=== PATIENT | female | born 1980 | race Caucasian/White ===

== ENCOUNTER 2016-07-23 23:50 | Inpatient (IN) | payer OTHER ==
--- NOTE | ~2016-07-23 | IDS ---
Interim Discharge Summary [facility] [address] [place]. [address] NAME: GONZÁLEZ MAX : 76 STATUS : ADM IN [facility]#: [id number] AGE: 36 ADM/REG DATE : 07/24/16 MR#: [id number] REPORT SERV DATE: 07/30/16 DICTATED BY: DATE: REPORT STATUS : Draft TRANSCRIBED BY: MODL DATE: 07/30/16 ADMISSION DATE: 07/24/2016 DISCHARGE DATE: The patient is admitted to the [facility]. CONSULTANTS: Have included Pulmonology, Dr. Karissa Omalley and CHRISTIAN Loev. CURRENT DIAGNOSES: 1. Acute hypoxemic respiratory failure-improving. 2. Acute exacerbation of chronic obstructive pulmonary disease-status post IV Rocephin and azithromycin. On ongoing IV steroid taper and frequent nebulizers. 3. Possible inflammatory lung disease-history of autoimmune conditions with abnormal CT chest for outpatient followup and repeat imaging in one to three months. 4. Possible asthma. 5. Low IgA level. 6. Steroid induced hyperglycemia. 7. New diagnosis of diabetes mellitus type 2-hemoglobin A1c 6.9. 8. Indeterminate probability PE on V/Q scan-heparin drip discontinued today for low clinical suspicion of pulmonary embolism. 9. History of lupus. 10.History of Raynaud. 11.History of myocardial infarction. 12.History of prior cerebrovascular accident. 13.History of papillary thyroid cancer, status post complete thyroidectomy. 14.History of hypoparathyroidism and hypocalcemia. 15.Bipolar/schizoaffective disorder. 16.Chronic pain syndrome. 17.Seizure disorder. 18.Obstructive sleep apnea, intolerant of CPAP. 19.Multiple recent dental infections and extractions. 20.Polypharmacy. 21.Obesity. 22.Tobacco dependence. 23.Low IgG level. IMAGIN. Portable chest x-ray, 07/23/2016 shows perihilar upper lobe atelectasis. 2. V/Q scan, 07/24/2016 extensive airway disease with matched defects in the lingula and lateral left base. No radiographic abnormality in the lingula or left base. Extent of ventilation disease is estimated to involve at least 50% of lung parenchyma resulting in overall indeterminate probability for pulmonary embolism. 3. Bilateral lower extremity venous Dopplers, 07/24/2016, no evidence of DVT. 4. Portable chest x-ray, 07/24/2016 persistent bilateral perihilar atelectasis and developing small left pleural effusion. 5. Echocardiogram, 07/24/2016 left ventricular systolic function intact at 55%. Left Interim Discharge Summary [place] [address] [place]. [address] NAME: GONZÁLEZ MAX : 76 STATUS : ADM IN PAT#: [id number] AGE: 36 ADM/REG DATE : 07/24/16 MR#: [id number] REPORT SERV DATE: 07/30/16 DICTATED BY: DATE: REPORT STATUS : Draft TRANSCRIBED BY: MODL DATE: 07/30/16 ventricular diastolic function intact. Right ventricular systolic function intact. No significant valvular dysfunction. No change from 11/2014. 6. Portable chest x-ray, 07/25/2016 bilateral asymmetric perihilar subsegmental atelectasis. Interval development of minimal bandlike atelectasis in the left lung base. 7. Portable chest x-ray, 07/26/2016 diminished lung volumes with mild bibasilar and perihilar atelectasis. 8. Chest CT without contrast, 07/26/2016, nonspecific ground-glass opacities and associated interstitial thickening, bilateral upper lobe and perihilar areas. Differential considerations are broad and include pneumonia, edema, alveolar hemorrhage, hypersensitivity pneumonitis, nonspecific interstitial pneumonitis, alveolar proteinosis. Mild bilateral posterior basal subsegmental atelectasis. No pleural disease. 9. Portable chest x-ray, 07/27/2016 continued low lung volumes with bibasilar and left perihilar atelectasis. 10.Portable chest x-ray, 07/29/2016 minimal left basilar atelectasis and effusion. PERTINENT LABS: Multiple procalcitonin values negative. White blood cell count between 12 and 14 and a half this admission, on steroids. Hemoglobin values between 11 and 13. Platelets normal. Creatinine ranging from 0.9 to 1.2. Blood glucose values between 200 and 500. Liver enzymes normal. TSH 0.196, free T4 normal, CRP 36. C3 and C4 levels normal. ANDREY negative. Troponin times multiple negative. Urinalysis negative. Urine Legionella negative. Strep antigen negative. Blood gases demonstrating hypoxemia with PO2 levels around 60s on FiO2 of 45% to 100%. Hemoglobin A1c 6.9. IgG level 468. Immunoglobulin A level 120, M 74. Blood cultures x2 negative. Sputum cultures negative. BRIEF HISTORY: For full details, please see the previously dictated history of present illness by Dr. Long Alas. This is a 36-year-old white female, who presented to the emergency department with shortness of breath for several days preceding admission, presyncope, weakness. Of note, she had recent dental extractions and had been on ciprofloxacin, but her symptoms were progressive despite this. She was seen at an urgent care clinic for her symptoms and started on a different antibiotic as well as inhalers, but her symptoms were progressive. She also endorsed pain in the middle of her chest primarily with coughing. In the emergency department was found to be quite hypoxemic, requiring 10 L to 14 L of oxygen to maintain oxygen saturations greater than 90%. She was felt potentially to have a COPD exacerbation as she recently had been diagnosed with COPD in the outpatient setting by her lens blocker, Dr. Sang Boateng. She also had an intermediate risk V/Q scan and was started on empiric heparin. She has a long-standing history of lupus and this was felt to be a possible contributing to presentation as well. HOSPITAL COURSE: The patient initially was admitted to [address] [place] [address], but had increasing respiratory requirements throughout the first day of admission. Her nebulizer regimen was optimized, with up to q.2 hour nebulizer treatments. Pulmonary toilet measures were encouraged. Her steroids were increased and her antibiotic was changed from doxycycline to Rocephin and azithromycin. Immunoglobulin levels were checked and she was found to be mildly deficient of IgG. Interim Discharge Summary [address] [address] NAME: GONZÁLEZ MAX DONNY : 76 STATUS : ADM IN [facility]#: [id number] AGE: 36 ADM/REG DATE : 07/24/16 MR#: [id number] REPORT SERV DATE: 07/30/16 DICTATED BY: DATE: REPORT STATUS : Draft TRANSCRIBED BY: MODEliza DATE: 07/30/16 Unfortunately, despite those measures she continued to wheeze tightly into the morning of 07/25/2016, and was transferred to the [facility]. Urgent pulmonary consultation was obtained and they agreed with all of those measures. ABG at that time was normal on 10 L of high-flow oxygen by nasal cannula, but the patient subjectively continued to complain of increasing dyspnea and chest pain. Multiple troponins were negative and procalcitonin was negative. Chest x-ray was clear. The patient was continued on her IV steroids, nebulizers, pulmonary toilet measures, and heparin drip at that time. She remained in the IMCU through 07/29/2016, and transferred out to the floor the evening of 07/29/2016, when her oxygen requirements had decreased to 2 L to 3 L by nasal cannula with exertion, and she was maintaining room air oxygen saturations greater than 90% at rest. Though, she continues to wheeze and be slightly bronchospastic with exertion, Ms. Max has improved dramatically during the course of this hospitalization. Just in the past 24 hours, we have begun IV steroid taper. She continues on high doses of nebulizer treatments. Her antibiotics have also been discontinued within the past 24 hours after completing seven-day total course of Rocephin and azithromycin here in the hospital. The patient has demonstrated extreme hyperglycemia in response to IV steroids with sugars occasionally in the 500 range. She is also noncompliant with a diabetic diet because of her recent tooth extractions and difficulty finding food. She enjoys eating. Her blood sugars are better controlled, now the steroid taper has started. However, hemoglobin A1c is elevated at 6.9, and she will require some followup for new diagnosis of type 2 diabetes. The patient had an abnormal CT chest this admission, nonspecific ground-glass opacities in the upper lobes. The differential diagnosis is broad, but the patient probably needs to follow up with her outpatient lens blocker, Dr. Sang Boateng for consideration of a lung biopsy in the future in order to determine the exact etiology of her profound bronchospasm and hypoxemia this admission. There is still a suspicion that IgG deficiency or autoimmune process may be factoring, of course, the patient also has COPD and probable evidence of restrictive airways disease due to habitus. She denies a past history of asthma by pulmonary function testing, but certainly aspects of this hospitalization seemed to reflect an acute asthma exacerbation. The patient occasionally also has "spells" where she is momentarily less responsive for a few seconds. There was no witnessed seizure activity. No loss of bowel or bladder continence and no postictal state. The patient has a history of seizure disorder and should follow up with Dr. Rodney regarding her medication regimen post discharge. She also has a history of lupus with somewhat unclear details as her ANDREY is negative and complement levels were normal this admission. She is supposed to follow up with Dr. Sang Laura for this, but has been noncompliant over the past several months. There is some concern for polypharmacy in the patient's medication regimen, but she was not open to the idea of streamlining medications this admission, nor was her mother, because "it has taken so long to get her on the right medication regimen ". The patient had indeterminate probability of pulmonary embolism on her initial V/Q scan, and unfortunately cannot receive contrast dye to stated history of anaphylaxis. Today, her Interim Discharge Summary [facility] [address] [place]. [address] NAME: GONZÁLEZ MAX : 76 STATUS : ADM IN PAT#: [id number] AGE: 36 ADM/REG DATE : 07/24/16 MR#: [id number] REPORT SERV DATE: 07/30/16 DICTATED BY: DATE: REPORT STATUS : Draft TRANSCRIBED BY: MODL DATE: 07/30/16 heparin drip is going to be discontinued because clinically the suspicion for pulmonary embolism is low given her clinical course over the past week. DISPOSITION: Would continue steroid taper and increase the patient's mobility. Watch for hypoglycemia as steroids are tapered. Her insulin will need to be decreased over the next one to two days. Anticipate the patient may be able to discharged home in the next two to three days pending her clinical course. She will need multiple followup appointments. Current specialists include Dr. Sang Boateng, Dr. Ninfa Rodney, Dr. Sang Laura, Dr. Ornelas, and her primary care provider is Dr. Karen Walker. AKS/WINL Devin Galeano M.D. / [id number] CC: DEVIN GALEANO M.D. Michael T Czarnecki, M.D. Peter Sabatini, MD
--- NOTE | ~2016-07-23 | DS ---
Discharge Summary [facility] [address] [place]. [address] NAME: GONZÁLEZ MAX : 76 STATUS : ADM IN PAT#: [id number] AGE: 36 ADM/REG DATE : 07/24/16 MR#: [id number] REPORT SERV DATE: 08/02/16 DICTATED BY: YENY LYLE DATE: 08/02/16 REPORT STATUS : Draft TRANSCRIBED BY: MODL DATE: 08/02/16 ADMISSION DATE: 07/24/2016 DISCHARGE DATE: 08/02/2016 CONDITION ON DISCHARGE: Stable. DISPOSITION: Discharged to home. EQUIPMENTS ON DISCHARGE: Home oxygen at 2 L/minute which the patient needs, and also a walker with rolling wheels or rolling walker as the patient does have difficulty walking around because of dyspnea with minimal exertion. DIAGNOSES ON DISCHARGE: 1. Acute hypoxemic respiratory failure - has improved; however, the patient will need home oxygen at 2 L/minute per nasal cannula for a while as her ABG is consistent with a low pO2 even on the day of discharge, but overall clinically her condition is much better and much improved. 2. Acute exacerbation of chronic obstructive pulmonary disease - resolved. 3. 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 At this time, this is also stable as the patient is on high-dose prednisone. 4. Low IgA level. 5. Steroid induced hyperglycemia. 6. Diagnosis of steroid induced diabetes mellitus with an A1c of 6.9. 7. Diagnosis of lupus. 8. History of Raynaud's probably from lupus. 9. Hypertension. 10.Only per history, there is a history of myocardial infarction and a questionable prior cerebrovascular accident. 11.History of papillary thyroid cancer. 12.History of hypoparathyroidism and hypocalcemia. 13.Bipolar/schizoaffective disorder. 14.Chronic pain syndrome. 15.Seizure disorder. 16.Obstructive sleep apnea - intolerant of CPAP. 17.Obesity and low IgG level. BRIEF HOSPITAL COURSE: Please refer to the intermittent discharge summary dictated by Dr. Wyatt. I took over care of this patient on 07/31/2016, and I am discharging the patient on 08/02/2016. During the time that I took care of this patient, the patient improved tremendously once I started her on prednisone at 40 mg a day. Her wheezes disappeared on 08/01/2016 itself, and her breathing got lot better and her lungs are pretty much clear on the day of discharge. However, she is still hypoxic, and her ABG shows that her pO2 is still low, and hence, she is requiring home oxygen at this time. Hence, we will send her home on home oxygen, and also advised her to follow up with tool storage attendant within the next one to two weeks or as scheduled. The patient will also follow up with her PCP and pain specialist as scheduled before. Discharge Summary [place] [id number] [facility] [place] [address] NAME: GONZÁLEZ MAX : 76 STATUS : ADM IN PAT#: [id number] AGE: 36 ADM/REG DATE : 07/24/16 MR#: [id number] REPORT SERV DATE: 08/02/16 DICTATED BY: YENY LYLE DATE: 08/02/16 REPORT STATUS : Draft TRANSCRIBED BY: SHRUTI DATE: 08/02/16 Essentially, her home medications will be exactly the same except that she has received new prescriptions for Breo Ellipta from the tool storage attendant and also a new prescription for Spiriva HandiHaler from the tool storage attendant, and also tapering prednisone therapy per Pulmonology. Other than this all other medications that she takes at home will remain exactly the same. Regarding her labs, I do have the following most recent labs on the patient. On 08/01/2016, her CBC shows a WBC count of 12.7, hemoglobin of 11.2, hematocrit of 33.3, and platelet count of 174. Her electrolyte profile shows normal electrolytes, BUN and creatinine. Glucose has been up, but never exceeded 180. There may have been one time when postprandial glucose was 250, but most results have stayed between 130 and 150. The patient may have some steroid induced hyperglycemia, but at this time, since her A1c is still less than 7, I will let the PCP handle this when she goes as an outpatient as we are tapering her steroids anyways. ABGs on 08/02/2016 shows pH of 7.4, pCO2 of 38, pO2 of 34, bicarb of 24.9, O2 sats of 67.8 on 2 L of oxygen. Hence, the patient may even need a higher amount of oxygen than 2 L and I will look into this before discharge. Hence, the patient will be discharged home with home oxygen and also a rolling walker as clinically she feels much better and her lungs have cleared up. The patient will closely follow up with tool storage attendant at this time, and she also has a coal weigher that she follows up with. I have spent about 40 minutes in coordinating discharge care of this patient including [id number] encounter and summarizing this discharge. DICTATED BY: Tameka Sampson/SHRUTI Yeny Lyle M.D. / [id number] CC: Tameka Sampson M.D.
--- NOTE | ~2016-07-23 | CN ---
Consultation Report [facility] [address] [place]. [address] NAME: GONZÁLEZ MAX : 76 STATUS : ADM IN PAT#: [id number] AGE: 36 ADM/REG DATE : 07/24/16 MR#: [id number] REPORT SERV DATE: 07/25/16 DICTATED BY: KARISSA REYES DATE: 07/25/16 REPORT STATUS : Draft TRANSCRIBED BY: MODL DATE: 07/25/16 PULMONARY CONSULTATION DATE OF CONSULTATION: 07/25/2016 REASON FOR CONSULTATION: Hypoxia, persistent wheezing, and increasing dyspnea despite therapy. HISTORY OF PRESENT ILLNESS: Ms. Max is a 36-year-old white female, smoker, with possible asthma and COPD, systemic lupus erythematosus, Raynaud's, and possible obstructive sleep apnea, who was admitted yesterday complaining of two weeks of increasing shortness of breath, nonproductive cough, wheezing, and malaise. Pulmonary was consulted secondary to worsening hypoxia, persistent wheezing, worsening shortness of breath, and symptoms/physical findings consistent with bronchospasm despite aggressive treatment with antibiotics, IV steroids, bronchodilators, nebulized steroids, and supplemental oxygen. The patient is complaining of marked shortness of breath/dyspnea on exertion that has worse since admission yesterday. She states her nonproductive cough is unchanged. She does have chronic GERD symptoms, but feels these are well controlled with her proton pump inhibitor. She denies nasal symptoms, allergic symptoms, or orthopnea. She did have some sharp chest pain prior to admission, but states that has resolved. With regard to her underlying pulmonary disease, she is followed outpatient by lens coater, Dr. Sang Boateng. She states that Dr. Boateng has advised her that she has COPD, but "not asthma." She states she did have pulmonary function testing. Additionally, she states she had a CT scan of the chest more than one year ago, but has not had any recent outpatient chest x-rays. As an outpatient, she was on Singulair 10 mg once daily. She also had albuterol for rescue purposes, but was on no other maintenance medications. It is notable that she was on prednisone 20 mg twice daily for her rheumatological disorder. Since admission, she has received Solu-Medrol 125 mg IV q.6. She is on Rocephin and azithromycin. Additionally, she is receiving DuoNeb and supplemental oxygen with no improvement in her symptoms, but rather worsening as noted above. PAST MEDICAL HISTORY: 1. Possible COPD as noted above. 2. Obstructive sleep apnea-per the patient and her family on available information, the patient had an initial sleep study done several years ago outside of [place], at that time, she was diagnosed with obstructive sleep apnea and started on CPAP. She was intolerant of CPAP due to coughing. She had a subsequent sleep study done here 12/22/2014 that was negative for sleep apnea so CPAP was discontinued. 3. Systemic lupus erythematosus, diagnosed at 20 years of age-on chronic steroid therapy. 4. Raynaud disease, diagnosed at 11 years of age. 5. Coronary artery disease with previous myocardial infarction x3 and subsequent Consultation Report [address] [place]. [address] NAME: GONZÁLEZ MAX : 76 STATUS : ADM IN [facility]#: [id number] AGE: 36 ADM/REG DATE : 07/24/16 MR#: [id number] REPORT SERV DATE: 07/25/16 DICTATED BY: KARISSA REYES DATE: 07/25/16 REPORT STATUS : Draft TRANSCRIBED BY: SHRUTI DATE: 07/25/16 angioplasty. 6. Recurrent urinary tract infections. 7. Fatty liver. 8. Colon polyps. 9. Seizure disorder. 10.Thyroidectomy secondary to papillary carcinoma of the thyroid with subsequent hypothyroidism. 11.Anxiety/depression. 12.Schizoaffective disorder. 13.Hypoparathyroidism with associated hypocalcemia. 14.Nephrolithiasis with prior stenting. 15.Cholecystectomy. 16.Hysterectomy. FAMILY HISTORY: Maternal grandmother has immunodeficiency. Maternal aunts have lupus. She denies a family history of pulmonary diseases. SOCIAL HISTORY: The patient is an active smoker. She has smoked up to one pack of cigarettes per day intermittently since age 18. She currently smokes four cigarettes per day. She denies ethanol intake, past/present drug use, chewing tobacco, or occupational exposures. She is unemployed-on disability. She is . She has two children from a prior marriage who live in another state. MEDICATIONS: Outpatient and inpatient medications were reviewed and are as documented in the record. As noted above, her outpatient pulmonary medications were nebulized albuterol/metered dose inhaler as needed and Singulair 10 mg once daily. ALLERGIES: CONTRAST DYE, PROCAINE, REGLAN, CODEINE, SULFA, AND HYDROCODONE. REVIEW OF SYSTEMS: Ten-point system review was conducted and is remarkable for the symptoms as described in the history of present illness. She denies active symptoms of obstructive sleep apnea. PHYSICAL EXAMINATION: VITAL SIGNS: Temperature 97.6 degrees, heart rate 92, blood pressure 90/55, respiratory rate 16, oxygen saturation 92% on supplemental oxygen at a flow rate of 10 L/minute. GENERAL: Pale obese white female. Alert, oriented, in no apparent distress. Slightly diaphoretic. HEENT: Normocephalic and atraumatic. There is no scleral icterus. The conjunctivae are clear. The oropharynx is clear. NECK: Supple. There is no lymphadenopathy. LUNGS: There is good effort. The patient is slightly tachypneic with a respiratory rate varying from 16 to 24. She is not using accessory muscles to breathe. There is fair air movement, but it is decreased. There are scattered inspiratory and expiratory wheezes in all le. There are no crackles or rhonchi. Consultation Report [address] [place]. [address] NAME: GONZÁLEZ MAX : 76 STATUS : ADM IN [facility]#: [id number] AGE: 36 ADM/REG DATE : 07/24/16 MR#: [id number] REPORT SERV DATE: 07/25/16 DICTATED BY: KARISSA REYES DATE: 07/25/16 REPORT STATUS : Draft TRANSCRIBED BY: MODL DATE: 07/25/16 HEART: Regular rate and rhythm. No ectopy was noted. ABDOMEN: Obese. Soft. Nontender. Nondistended. There are normal bowel sounds in all four quadrants. BILATERAL EXTREMITIES: There is no clubbing, cyanosis, or edema. NEUROLOGICAL: A limited exam was found to be nonfocal. SKIN: No rashes were noted. LABORATORY RESULTS: Labs were reviewed and are documented in the record. Notable labs include a white blood cell count of 14.6, which has increased from admission. The procalcitonin is less than 0.05. BNP is 7.9. The IgG is 468, which is slightly low. Arterial blood gas done this morning revealed a pH of 7.42, pCO2 of 39, and pO2 of 80 on 80% supplemental oxygen. ABG on admission revealed a pH of 7.44, pCO2 of 39, pO2 of 68, on 45% oxygen. The lactate is 1.5. IMAGING: The chest x-ray done this morning revealed no infiltrate or effusion. There is bilateral perihilar and left basilar atelectasis which is unchanged from admission. ASSESSMENT AND PLAN: Ms. Max is a 36-year-old white female, smoker, with possible chronic obstructive pulmonary disease and probable asthma as well as possible obstructive sleep apnea. She has persistent wheezing consistent with bronchospasm along with a nonproductive cough, hypoxia, and increased dyspnea despite treatment with antibiotics, including Rocephin and Zithromax, IV Solu-Medrol at a dose of 125 mg IV q.6 hours, nebulized steroids, bronchodilators, and supplemental oxygen. Recommend moving the patient to the [facility] for more aggressive treatment. We would continue her on Solu-Medrol 125 mg IV q.6 hours. Recommend increasing her budesonide dose from 0.5 to 1 mg via nebulization every 12 hours. Recommend more aggressive treatment with bronchodilators over the next few hours. We will add 5 mg (6 mL) of albuterol via nebulization q.2 hours in between her usual DuoNeb q.4 hours for at least next four doses. With regard to her DuoNeb, we would continue that for now but may discontinue the ipratropium in the near future as it can cause dryness particularly in light of her underlying lupus. She does have atelectasis as noted. We would improve pulmonary toilet. She has started using an incentive spirometer and this was encouraged. We would add a flutter valve and EzPAP. Recommend following her arterial blood gas and chest x-ray. Consultation Report [facility] [address] [place]. [address] NAME: GONZÁLEZ MAX DONNY : 76 STATUS : ADM IN [facility]#: [id number] AGE: 36 ADM/REG DATE : 07/24/16 MR#: [id number] REPORT SERV DATE: 07/25/16 DICTATED BY: KARISSA REYES DATE: 07/25/16 REPORT STATUS : Draft TRANSCRIBED BY: MODL DATE: 07/25/16 Titrate supplemental oxygen to maintain her saturation above 91%. May need to use Vapotherm. Check sputum if the patient is able to provide a sample. Continue Singulair and Protonix. May need to support her with BiPAP though she has had problems with the CPAP mask in the past. She is agreeable to attempting BiPAP. If she deteriorates and is unable to tolerate BiPAP, then she may require intubation. She was counseled more than five minutes regarding the importance of smoking cessation. Thank you very much for this consultation. Further recommendations to follow dependent on her response to therapy. PS/MODL Karissa Reyes M.D. / [id number] CC: Tameka Snyder M.D.
--- NOTE | ~2016-07-23 | HP ---
History And Physical [place] [place] [id number] [place]. [address] NAME: GONZÁLEZ MAX : 76 STATUS : ADM IN PAT#: [id number] AGE: 36 ADM/REG DATE : 07/24/16 MR#: [id number] REPORT SERV DATE: 07/24/16 DICTATED BY: JOSÉ MANUEL FRENCH DATE: 07/24/16 REPORT STATUS : Draft TRANSCRIBED BY: MODL DATE: 07/24/16 DATE OF ADMISSION: 07/24/2016 CHIEF COMPLAINT: A 36-year-old female with longstanding lupus, now presenting with shortness of breath. HISTORY OF PRESENT ILLNESS: The patient's history was obtained through careful interview with the patient coupled with review of [facility] and [facility] medical records. The patient states her problems may have begun about two weeks ago when she developed a lower jaw infected tooth. She was placed on ciprofloxacin for a week and then had her bottom teeth extracted about a week ago. She has had difficulty recovering for that with increasing fatigue and debilitation and not wanting to be too active. But then, on 07/20/2016, the patient had a sudden onset of new shortness of breath. She characterizes it by dyspnea on exertion. No orthopnea. No paroxysmal nocturnal dyspnea. She has had a nonproductive cough. She went to an Urgent Care Clinic on 07/20/2016, was told that she had bronchitis and was placed on medications for this, but she states "they have not helped." Then, by 07/23/2016, leading up to admission, she states that her breathing was so bad that she was "suffocating." She has had difficulty eating because of her difficulty breathing. She has had no nausea or vomiting though. She has noticed some increasing lower extremity edema, some lightheadedness. She describes bilateral "lung" pain, heaviness quality, 7/10 severity. She has had arthritis discomfort from her lupus mostly affecting her ankles, knees, wrists, and lower back, about 8/10 severity that is constant. She has had lightheadedness, orthostatic symptoms. She notices chronic easy bruising. REVIEW OF SYSTEMS: Otherwise, a 14-point review of systems was obtained and was negative. PAST MEDICAL HISTORY: 1. Lupus at 20 years of age. 2. Raynaud's at 11 years of age. 3. Myocardial infarction x3 with angioplasty, suffered at 20 years of age. 4. Obstructive sleep apnea, intolerant of CPAP. History And Physical [address] [place]. [address] NAME: GONZÁLEZ MAX : 76 STATUS : ADM IN [facility]#: [id number] AGE: 36 ADM/REG DATE : 07/24/16 MR#: [id number] REPORT SERV DATE: 07/24/16 DICTATED BY: JOSÉ MANUEL FRENCH DATE: 07/24/16 REPORT STATUS : Draft TRANSCRIBED BY: SHRUTI DATE: 07/24/16 5. Urinary tract infection. 6. Seizure disorder, on Topamax. 7. Fatty liver disease. 8. Colon polyps, seen by Dr. Jose Lea. 9. Hypothyroidism after thyroidectomy. 10.Hypoparathyroidism with hypocalcemia. 11.Stroke with left-sided weakness. 12.Thyroid cancer, papillary type, status post complete thyroidectomy. 13.Lithiasis, status post stent placement. 14.Bipolar disorder and schizoaffective disorder with anxiety. 15.COPD. PAST SURGICAL HISTORY: 1. Hysterectomy. 2. Thyroidectomy followed by a complete thyroidectomy. 3. Cholecystectomy. ALLERGIES: IV CONTRAST, HYDROCODONE, PROCAINE, REGLAN, CODEINE, AND SULFA. SOCIAL HISTORY: The patient is a smoker. No alcohol abuse. She is . Disabled. Lives with her , mother, and brother. She has two children, 17 and 18 years old that live in [facility] with her ex-. FAMILY HISTORY: Heart disease and diabetes. CURRENT MEDICATIONS: Include albuterol inhaler; Elavil 150 mg p.o. at bedtime; Fioricet p.o. t.i.d. p.r.n.; aspirin 81 mg p.o. b.i.d.; baclofen 20 mg p.o. b.i.d.; calcium with vitamin D; Plavix 75 mg p.o. daily; Prozac 20 mg daily; Neurontin 100 mg at bedtime; hydrochlorothiazide 25 mg p.o. daily; hydroxyzine 25 mg p.o. b.i.d.; Levaquin 750 mg p.o. daily, started on 07/20/2016; Synthroid 200 mcg p.o. daily; lisinopril 10 mg p.o. daily; melatonin 10 mg at bedtime; Lopressor 50 mg p.o. b.i.d.; Singulair 10 mg p.o. daily; MS Contin 15 mg p.o. b.i.d.; Prilosec 40 mg p.o. b.i.d.; Zofran p.r.n.; Roxicodone 5 mg p.o. t.i.d. as needed; prednisone 20 mg p.o. b.i.d.; Seroquel 100 mg p.o. daily; Zocor 10 mg p.o. daily; Aldactone 50 mg p.o. daily; Topamax 200 mg p.o. b.i.d.; Celoron; various over-the- counter medications and normal remedies; probiotics; milk thistle. PHYSICAL EXAMINATION: VITAL SIGNS: Temperature 98.9; pulse 126; blood pressure 107/57, it drop to as low as 96/68; respiratory rate 22; O2 sat 80% on room air. GENERAL: An ill-appearing female, no evidence of distress secondary to shortness of breath. HEENT: Pupils equal, round, and reactive to light. No conjunctival pallor. No scleral icterus. Nares are patent. Oropharynx is clear of obstruction. Moist mucous membranes. NECK: Trachea midline. No thyromegaly. LYMPH: No cervical lymphadenopathy. No supraclavicular lymphadenopathy. RESPIRATORY: The patient does have quite harsh inspiratory and expiratory wheezes, upper respiratory rhonchi. No rales. The patient has a labored respiratory effort, but she is History And Physical [address] [address] NAME: GONZÁLEZ MAX DONNY : 76 STATUS : ADM IN PAT#: [id number] AGE: 36 ADM/REG DATE : 07/24/16 MR#: [id number] REPORT SERV DATE: 07/24/16 DICTATED BY: JOSÉ MANUEL FRENCH DATE: 07/24/16 REPORT STATUS : Draft TRANSCRIBED BY: SHRUTI DATE: 07/24/16 not in respiratory distress. CARDIOVASCULAR: Tachycardic. Regular rhythm. No murmurs, rubs, or gallops. No current extremity edema is appreciated. ABDOMEN: Soft, nontender, nondistended. Normal bowel sounds auscultated throughout. No hepatosplenomegaly. DERMATOLOGICAL: Warm and dry. EXTREMITIES: No pallor. No cyanosis. PSYCHIATRIC: Normal affect. Good mood. Alert and oriented x3. LABORATORY DATA: White blood cell count 11.2, hemoglobin 14, hematocrit 41, platelets 232. Sodium 138, potassium 3.8, chloride 101, bicarb 29, BUN 20, creatinine 1.2, glucose 162. Troponin negative. Lactic acid 1.5. Urinalysis negative for an infection. ABG demonstrates pH 7.43, a PaCO2 of 39, a PaO2 of 67, and a bicarb of 26, on 45% nasal cannula. STUDIES: 1. Chest x-ray by my own evaluation shows no acute cardiopulmonary process. 2. EKG by my own evaluation shows sinus tachycardia, no major abnormalities. 3. V/Q scan was intermediate risk. ASSESSMENT AND PLAN: 1. Hypoxic respiratory failure. Provide supportive care. 2. Chronic obstructive pulmonary disease exacerbation. Counseled tobacco abstinence. Placed on IV Solu-Medrol, Duo nebulizers, doxycycline. 3. Intermediate risk of V/Q scan. Start heparin drip IV empirically. Check an echocardiogram. Check venous Doppler ultrasound of the lower extremities. 4. Lupus. Check complement levels. Check ANDREY titer. Check ESR and CRP. 5. Hypothyroid, hypoparathyroid. Check thyroid panel. Check ionized calcium. KPL/MODL José Manuel French M.D. / [id number] CC: Tameka Milligan M.D.
[2016-07-23 20:22] LABS: BASOPHILS 0.1 %; BASOPHILS ABSOLUTE 0.01 10/3/uL (0.0-0.16); EOSINOPHILS 0.3 %; EOSINOPHILS ABSOLUTE 0.03 10/3/uL (0.0-0.53); HEMATOCRIT 41.3 % (36.0-48.0); HEMOGLOBIN 14.1 g/dL (12.0-16.0); IMMATURE GRANULOCYTES 0.5 %; IMMATURE GRANULOCYTES ABSOLUTE 0.06 10/3/uL (0.0-0.11); LYMPHOCYTES 24.8 %; LYMPHOCYTES ABSOLUTE 2.78 10/3/uL (0.67-4.30); MEAN CORPUS HGB CONC 34.1 g/dL (32.0-36.0); MEAN CORPUSCULAR HEMOGLOB 30.6 pg (26.0-34.0); MEAN CORPUSCULAR VOLUME 89.6 fL (80-100); MEAN PLATELET VOLUME 9.9 fL (9.2-13.0); MONOCYTES 3.9 %; MONOCYTES ABSOLUTE 0.44 10/3/uL (0.21-1.20); NEUTROPHILS 70.4 %; NEUTROPHILS ABSOLUTE 7.89 10/3/uL (2.02-8.40); PLATELET COUNT 232 10/3/uL (150-400); RBC DISTRIBUTION WIDTH 13.4 % (12.0-16.0); RED CELL COUNT 4.61 10/6/uL (4.0-5.6)
[2016-07-23 20:23] LABS: MANUAL DIFF NO %; WHITE BLOOD CELLS 11.2 10/3/uL (4.5-10.5)
[2016-07-23 20:42] LABS: CALCIUM, SERUM 9.3 MG/DL (8.5-10.4); CHLORIDE, SERUM 101 MMOL/L (96-112); CO2 (CARBON DIOXIDE) 29 MMOL/L (24-34); CREATININE 1.21 MG/DL (0.55-1.02); DIRECT BILIRUBIN 0.1 MG/DL (0.0-0.4); GFR AFRICAN AMERICAN 66 ML/MIN (>=60); GFR NON AFRICAN AMERICAN 57 ML/MIN (>=60); GLUCOSE, SERUM 162 MG/DL (60-99); INDIRECT BILIRUBIN(NOT ORDER) 0.3 MG/DL (0.1-0.9); POTASSIUM, SERUM 3.8 MMOL/L (3.5-5.3); SODIUM, SERUM 138 MMOL/L (135-148); TOTAL BILIRUBIN 0.4 MG/DL (0-1.2)
[2016-07-23 20:43] LABS: BUN (BLOOD UREA NITROGEN) 20 MG/DL (6-23)
[~2016-07-23 23:50] MED LIST: AMITRIPTYLIN150 MG PO; ASAB PO; ASCORBIC ACID PO; BREO ELLIPTA INH; BUSPAR15 M1 PO; CALTRA600D PO; CRANBERRY500 MG PO; HYDROCHLOROT25 MG PO; L20 PO; LEG CRAMP PM PO; LEG CRAMPS TAB PO; LOP50 PO; MELATONIN5 M1 PO; MSCONT15 PO; NATTOKINASE PO; NEUR100 PO; OMEGA 3 FISH OIL PO; OXYCOD PO; PERCOCET PO; PERCOCET1 TA4 PO; PLAVIX PO; PRILOSEC40 MG PO; PRIMROSE OIL PO; PRIN10 PO; PROAIR HFA INH; PROBIOTIC PO; PROVENT20 INH; PROZAC PO; QUERCETIN PO; ROCALTROL 0.0.25 MCG PO; SEROQUEL1C PO; SEROQUEL50 MG PO; SPIRO50 PO; SYMBICORT 160/41 INH INH; SYNTHROID175 MCG PO; TOPAMAX200 MG PO; VITAMIN D1000 UNI1 PO; VITAMIN D31000 UNIT PO; ZOCOR10 PO; ZOFRAN4 PO; ZYRTEC ALLGY10 MG PO; [UNRECOGNIZED DRUG - REMARK] PO
[2016-07-24 00:12] LABS: TROPONIN I <0.02 NG/ML (<0.05)
[2016-07-24 00:59] LABS: BE (BASE EXCESS) 1.6 MEQ/L (0 +/- 2.5); CARBOXYHEMOGLOBIN 1.1 % (0-3); DEVICE NC; HCO3 (ACTUAL BICARBONATE) 25.8 MEQ/L (23-27); HEMOBLOGIN CONTENT 13.9 G/DL (12-16); INSTRUMENT SERIAL # 8087; METHEMOGLOBIN 0.2 % (0-3); O2 CONTENT 17.8 VOL% (18-24); PCO2 (CO2 TENSION) 39 MMHG (35-45); PO2 (O2 TENSION) 68 MMHG (79-93); SAMPLE Arterial; pH 7.44 (7.37-7.43)
[2016-07-24 01:03] LABS: ASCORBIC ACID (UR NOT ORDER) 20 (NEG); BILIRUBIN, URINE NEGATIVE (NEG); ER URINALYSIS TAT 0 Hrs 03 Mins; KETONE, URINE NEGATIVE (NEG); LEUKOCYTE ESTERASE(NOT OR NEG (NEG); NITRITE (URINE) NEG (NEG); WBC (NOT ORDERED) (RFLEX) 1 (0-5)
[2016-07-24] MEDS ORDERED: CALTRA600D PO (03:26)
[2016-07-24] MEDS ORDERED: EVENING PRIMROSE PO (03:27)
[2016-07-24] MEDS ORDERED: ASAB PO (03:27)
[2016-07-24] MEDS ORDERED: NATTOKINASE PO (03:28)
[2016-07-24] MEDS ORDERED: VITAMIN D31000 UNIT PO ×2 (03:28)
[2016-07-24] MEDS ORDERED: MELATONIN10 M2 PO (03:29)
[2016-07-24] MEDS ORDERED: [UNRECOGNIZED DRUG - OTHER] PO (03:31)
[2016-07-24] MEDS ORDERED: FISH OIL OTC PO ×2 (03:32→03:34)
[2016-07-24] MEDS ORDERED: CRAMPS OTC PO (03:32)
[2016-07-24] MEDS ORDERED: BACLOFEN20 MG PO (03:36)
[2016-07-24] MEDS ORDERED: PROBIOTIC OTC PO (03:36)
[2016-07-24] MEDS ORDERED: TOPAMAX200 MG PO (03:37)
[2016-07-24] MEDS ORDERED: ZOCOR10 PO (03:37)
[2016-07-24] MEDS ORDERED: PROZAC PO (03:38)
[2016-07-24] MEDS ORDERED: AT25 PO (03:38)
[2016-07-24] MEDS ORDERED: SYNTHROID200 MCG PO (03:39)
[2016-07-24] MEDS ORDERED: AMIT75 PO (03:39)
[2016-07-24] MEDS ORDERED: MILK THISTLE 175 MG PO (03:39)
[2016-07-24] MEDS ORDERED: ALBUTEROL0.083 % INH ×2 (03:40→03:46)
[2016-07-24] MEDS ORDERED: [UNRECOGNIZED DRUG - OTHER] PO (03:40)
[2016-07-24] MEDS ORDERED: MSCONT15 PO (03:41)
[2016-07-24] MEDS ORDERED: LEVAQUIN750 MG PO (03:42)
[2016-07-24] MEDS ORDERED: OXYCOD PO (03:42)
[2016-07-24] MEDS ORDERED: P20 PO (03:43)
[2016-07-24] MEDS ORDERED: SEROQUEL1C PO (03:43)
[2016-07-24] MEDS ORDERED: VENTOLIN HFA INH (03:43)
[2016-07-24] MEDS ORDERED: FIORICET 50-301 EACH PO (03:44)
[2016-07-24] MEDS ORDERED: ZOFRAN4 PO (03:44)
[2016-07-24] MEDS ORDERED: PLAVIX PO (03:44)
[2016-07-24] MEDS ORDERED: SINGULAIR1 PO (03:44)
[2016-07-24] MEDS ORDERED: PRIN10 PO (03:45)
[2016-07-24] MEDS ORDERED: HYDROCHLOROT25 MG PO (03:45)
[2016-07-24] MEDS ORDERED: PRILOSEC40 MG PO (03:45)
[2016-07-24] MEDS ORDERED: SPIRO50 PO (03:45)
[2016-07-24] MEDS ORDERED: NEUR100 PO (03:45)
[2016-07-24] MEDS ORDERED: LOP50 PO (03:46)
[2016-07-24 12:17] LABS: CALCIUM IONIZED 4.16 MG/DL (3.80-4.80)
[2016-07-24 12:19] LABS: BASOPHILS 0.1 %; BASOPHILS ABSOLUTE 0.01 10/3/uL (0.0-0.16); EOSINOPHILS 0.1 %; EOSINOPHILS ABSOLUTE 0.01 10/3/uL (0.0-0.53); HEMATOCRIT 37.2 % (36.0-48.0); HEMOGLOBIN 12.7 g/dL (12.0-16.0); IMMATURE GRANULOCYTES 0.6 %; IMMATURE GRANULOCYTES ABSOLUTE 0.07 10/3/uL (0.0-0.11); LYMPHOCYTES 17.9 %; LYMPHOCYTES ABSOLUTE 2.13 10/3/uL (0.67-4.30); MANUAL DIFF NO %; MEAN CORPUS HGB CONC 34.1 g/dL (32.0-36.0); MEAN CORPUSCULAR HEMOGLOB 30.1 pg (26.0-34.0); MEAN CORPUSCULAR VOLUME 88.2 fL (80-100); MEAN PLATELET VOLUME 10.1 fL (9.2-13.0); MONOCYTES 2.8 %; MONOCYTES ABSOLUTE 0.33 10/3/uL (0.21-1.20); NEUTROPHILS 78.5 %; NEUTROPHILS ABSOLUTE 9.38 10/3/uL (2.02-8.40); PLATELET COUNT 232 10/3/uL (150-400); RED CELL COUNT 4.22 10/6/uL (4.0-5.6); WHITE BLOOD CELLS 11.9 10/3/uL (4.5-10.5)
[2016-07-24 12:30] LABS: INTERNATIONAL NORMAL RATI 1.1 UNITS (-); PROTIME (NOT ORD) 14.5 SEC (12.0-14.5)
[2016-07-24 12:31] LABS: PARTIAL THROMBO TIME 94.8 SEC (22.5-37.2)
[2016-07-24 12:40] LABS: A/G RATIO 0.8 (0.7-1.9); ALKALINE PHOSPHATASE 75 U/L (45-117); BUN (BLOOD UREA NITROGEN) 23 MG/DL (6-23); CALCIUM, SERUM 8.8 MG/DL (8.5-10.4); CHLORIDE, SERUM 101 MMOL/L (96-112); CO2 (CARBON DIOXIDE) 25 MMOL/L (24-34); COMPLEMENT C3 156 MG/DL (75-161); COMPLEMENT C4 28.5 MG/DL (16-47); CREATININE 1.14 MG/DL (0.55-1.02); FREE T4 1.41 NG/DL (0.76-1.46); GFR AFRICAN AMERICAN 71 ML/MIN (>=60); GFR NON AFRICAN AMERICAN 61 ML/MIN (>=60); GLOBULIN 3.7 G/DL (2.5-4.1); GLUCOSE, SERUM 317 MG/DL (60-99); PHOSPHORUS, SERUM 2.8 MG/DL (2.5-4.5); POTASSIUM, SERUM 4.1 MMOL/L (3.5-5.3); SGOT(AST) 20 U/L (5-40); SGPT(ALT) 24 U/L (5-65); SODIUM, SERUM 135 MMOL/L (135-148); TOTAL BILIRUBIN 0.2 MG/DL (0-1.2); TOTAL PROTEIN 6.7 G/DL (6.0-8.5); TROPONIN I <0.02 NG/ML (<0.05); ULTRASENSITIVE TSH 0.196 MCIU/ML (0.358-3.740)
[2016-07-24 13:00] LABS: B NATRIURETIC PEPTIDE (BNP) 7.9 PG/ML (< 100.0); SED RATE 34 MM/HR (0-20)
[2016-07-25 01:35] LABS: BASOPHILS 0.1 %; BASOPHILS ABSOLUTE 0.02 10/3/uL (0.0-0.16); EOSINOPHILS 0.8 %; EOSINOPHILS ABSOLUTE 0.11 10/3/uL (0.0-0.53); HEMATOCRIT 37.7 % (36.0-48.0); IMMATURE GRANULOCYTES ABSOLUTE 0.14 10/3/uL (0.0-0.11); LYMPHOCYTES 26.1 %; LYMPHOCYTES ABSOLUTE 3.81 10/3/uL (0.67-4.30); MANUAL DIFF NO %; MEAN CORPUS HGB CONC 34.5 g/dL (32.0-36.0); MEAN CORPUSCULAR HEMOGLOB 30.4 pg (26.0-34.0); MEAN CORPUSCULAR VOLUME 88.1 fL (80-100); MEAN PLATELET VOLUME 9.6 fL (9.2-13.0); MONOCYTES 6.4 %; MONOCYTES ABSOLUTE 0.94 10/3/uL (0.21-1.20); NEUTROPHILS 65.6 %; NEUTROPHILS ABSOLUTE 9.57 10/3/uL (2.02-8.40); PLATELET COUNT 244 10/3/uL (150-400); RED CELL COUNT 4.28 10/6/uL (4.0-5.6); WHITE BLOOD CELLS 14.6 10/3/uL (4.5-10.5)
[2016-07-25 01:58] LABS: A/G RATIO 0.8 (0.7-1.9); ALKALINE PHOSPHATASE 69 U/L (45-117); BUN (BLOOD UREA NITROGEN) 19 MG/DL (6-23); CALCIUM, SERUM 8.7 MG/DL (8.5-10.4); CHLORIDE, SERUM 104 MMOL/L (96-112); CO2 (CARBON DIOXIDE) 27 MMOL/L (24-34); GFR AFRICAN AMERICAN 83 ML/MIN (>=60); GFR NON AFRICAN AMERICAN 71 ML/MIN (>=60); GLOBULIN 3.6 G/DL (2.5-4.1); GLUCOSE, SERUM 142 MG/DL (60-99); IMMUNOGLOBULIN A 120 MG/DL (70-420); IMMUNOGLOBULIN G 468 MG/DL (673-1464); IMMUNOGLOBULIN M 74 MG/DL (30-270); POTASSIUM, SERUM 3.8 MMOL/L (3.5-5.3); SGOT(AST) 13 U/L (5-40); SGPT(ALT) 20 U/L (5-65); SODIUM, SERUM 140 MMOL/L (135-148); TOTAL BILIRUBIN 0.2 MG/DL (0-1.2); TOTAL PROTEIN 6.6 G/DL (6.0-8.5)
[2016-07-25 10:52] LABS: BE (BASE EXCESS) 0.4 MEQ/L (0 +/- 2.5); CARBOXYHEMOGLOBIN 0.2 % (0-3); DEVICE HFNC; HCO3 (ACTUAL BICARBONATE) 24.7 MEQ/L (23-27); HEMOBLOGIN CONTENT 13.7 G/DL (12-16); INSTRUMENT SERIAL # 35151; METHEMOGLOBIN 0.3 % (0-3); O2 CONTENT 18.1 VOL% (18-24); PCO2 (CO2 TENSION) 39 MMHG (35-45); PO2 (O2 TENSION) 80 MMHG (79-93); SAMPLE Arterial; pH 7.42 (7.37-7.43)
[2016-07-25 10:54] LABS: ANA TITER <1:40 TITER
[2016-07-25 11:10] LABS: PROCALCITONIN 0.07 ng/mL (<0.5)
[2016-07-26 05:55] LABS: ALLENS TEST Pos; BE (BASE EXCESS) -1.7 MEQ/L (0 +/- 2.5); CARBOXYHEMOGLOBIN 0.3 % (0-3); DEVICE HFNC; HCO3 (ACTUAL BICARBONATE) 23.4 MEQ/L (23-27); HEMOBLOGIN CONTENT 12.7 G/DL (12-16); INSTRUMENT SERIAL # 8083; METHEMOGLOBIN 0.2 % (0-3); O2 CONTENT 16.7 VOL% (18-24); OPERATOR ID 35390; PCO2 (CO2 TENSION) 41 MMHG (35-45); PO2 (O2 TENSION) 78 MMHG (79-93); SAMPLE Arterial; pH 7.38 (7.37-7.43)
[2016-07-27 07:09] LABS: HEMATOCRIT 34.3 % (36.0-48.0); HEMOGLOBIN 11.5 g/dL (12.0-16.0); MEAN CORPUS HGB CONC 33.5 g/dL (32.0-36.0); MEAN CORPUSCULAR HEMOGLOB 29.6 pg (26.0-34.0); MEAN CORPUSCULAR VOLUME 88.4 fL (80-100); MEAN PLATELET VOLUME 9.6 fL (9.2-13.0); PLATELET COUNT 215 10/3/uL (150-400); RBC DISTRIBUTION WIDTH 13.1 % (12.0-16.0); RED CELL COUNT 3.88 10/6/uL (4.0-5.6); WHITE BLOOD CELLS 14.4 10/3/uL (4.5-10.5)
[2016-07-27 07:10] LABS: MANUAL DIFF YES %
[2016-07-27 07:21] LABS: BUN (BLOOD UREA NITROGEN) 21 MG/DL (6-23); CALCIUM, SERUM 8.1 MG/DL (8.5-10.4); CHLORIDE, SERUM 105 MMOL/L (96-112); CO2 (CARBON DIOXIDE) 27 MMOL/L (24-34); CREATININE 1.17 MG/DL (0.55-1.02); GFR AFRICAN AMERICAN 68 ML/MIN (>=60); GFR NON AFRICAN AMERICAN 59 ML/MIN (>=60); GLUCOSE, SERUM 251 MG/DL (60-99); POTASSIUM, SERUM 4.1 MMOL/L (3.5-5.3); SODIUM, SERUM 139 MMOL/L (135-148)
[2016-07-27 07:34] LABS: BAND NEUTROPHILS 10 %; LYMPHOCYTES 14 %; LYMPHOCYTES ABSOLUTE (CALC) 2.02 10/3/uL (0.67-4.30); MONOCYTES 5 %; MONOCYTES ABSOLUTE (CALC) 0.72 10/3/uL (0.21-1.20); NEUTROPHILS ABSOLUTE (CALC) 11.66 10/3/uL (2.02-8.40); PLATELET ESTIMATE ADQ (ADEQUATE); RBC MORPHOLOGY NORM (NORMAL); SEGMENTED NEUTROPHIL (0) 71 %; TOTAL NUCLEATED CELLS 100
[2016-07-28 04:56] LABS: HEMATOCRIT 34.7 % (36.0-48.0); MEAN CORPUS HGB CONC 34.6 g/dL (32.0-36.0); MEAN CORPUSCULAR HEMOGLOB 30.5 pg (26.0-34.0); MEAN CORPUSCULAR VOLUME 88.1 fL (80-100); MEAN PLATELET VOLUME 9.3 fL (9.2-13.0); PLATELET COUNT 222 10/3/uL (150-400); RBC DISTRIBUTION WIDTH 13.3 % (12.0-16.0); RED CELL COUNT 3.94 10/6/uL (4.0-5.6); WHITE BLOOD CELLS 13.7 10/3/uL (4.5-10.5)
[2016-07-28 05:01] LABS: PARTIAL THROMBO TIME 48.6 SEC (22.5-37.2)
[2016-07-28 05:05] LABS: BUN (BLOOD UREA NITROGEN) 18 MG/DL (6-23); CALCIUM, SERUM 8.2 MG/DL (8.5-10.4); CHLORIDE, SERUM 107 MMOL/L (96-112); CO2 (CARBON DIOXIDE) 28 MMOL/L (24-34); CREATININE 1.24 MG/DL (0.55-1.02); GFR AFRICAN AMERICAN 64 ML/MIN (>=60); GFR NON AFRICAN AMERICAN 55 ML/MIN (>=60); GLUCOSE, SERUM 269 MG/DL (60-99); POTASSIUM, SERUM 4.2 MMOL/L (3.5-5.3); SODIUM, SERUM 142 MMOL/L (135-148)
[2016-07-28 05:08] LABS: MANUAL DIFF YES %
[2016-07-28 05:17] LABS: LYMPHOCYTES 13 %; LYMPHOCYTES ABSOLUTE (CALC) 1.78 10/3/uL (0.67-4.30); MONOCYTES 4 %; MONOCYTES ABSOLUTE (CALC) 0.55 10/3/uL (0.21-1.20); NEUTROPHILS ABSOLUTE (CALC) 11.37 10/3/uL (2.02-8.40); PLATELET ESTIMATE ADQ (ADEQUATE); RBC MORPHOLOGY NORM (NORMAL); SEGMENTED NEUTROPHIL (0) 83 %; TOTAL NUCLEATED CELLS 100
[2016-07-28 05:58] LABS: PROCALCITONIN 0.13 ng/mL (<0.5)
[2016-07-29 05:16] LABS: HEMATOCRIT 32.6 % (36.0-48.0); MEAN CORPUS HGB CONC 33.7 g/dL (32.0-36.0); MEAN CORPUSCULAR HEMOGLOB 29.6 pg (26.0-34.0); MEAN CORPUSCULAR VOLUME 87.9 fL (80-100); MEAN PLATELET VOLUME 9.2 fL (9.2-13.0); PLATELET COUNT 190 10/3/uL (150-400); RBC DISTRIBUTION WIDTH 13.3 % (12.0-16.0); RED CELL COUNT 3.71 10/6/uL (4.0-5.6); WHITE BLOOD CELLS 12.6 10/3/uL (4.5-10.5)
[2016-07-29 05:26] LABS: CHLORIDE, SERUM 105 MMOL/L (96-112); CO2 (CARBON DIOXIDE) 24 MMOL/L (24-34); CREATININE 1.25 MG/DL (0.55-1.02); GFR AFRICAN AMERICAN 63 ML/MIN (>=60); GFR NON AFRICAN AMERICAN 55 ML/MIN (>=60); SODIUM, SERUM 140 MMOL/L (135-148)
[2016-07-29 05:32] LABS: MANUAL DIFF YES %
[2016-07-29 05:35] LABS: BUN (BLOOD UREA NITROGEN) 22 MG/DL (6-23); GLUCOSE, SERUM 354 MG/DL (60-99)
[2016-07-29 06:03] LABS: BAND NEUTROPHILS 6 %; BASOPHILS 1 %; BASOPHILS ABSOLUTE (CALC) 0.13 10/3/uL (0.0-0.16); EOSINOPHILS 2 %; EOSINOPHILS ABSOLUTE (CALC) 0.25 10/3/uL (0.0-0.53); IMMATURE GRANS ABSOLUTE (CALC) 0.25 10/3/uL (0.0-0.11); LYMPHOCYTES 14 %; LYMPHOCYTES ABSOLUTE (CALC) 1.76 10/3/uL (0.67-4.30); METAMYELOCYTES 2 %; MONOCYTES 5 %; MONOCYTES ABSOLUTE (CALC) 0.63 10/3/uL (0.21-1.20); NEUTROPHILS ABSOLUTE (CALC) 9.58 10/3/uL (2.02-8.40); SEGMENTED NEUTROPHIL (0) 70 %; TOTAL NUCLEATED CELLS 100
[2016-07-29 06:04] LABS: PLATELET ESTIMATE ADQ (ADEQUATE); TOXIC GRANULATION SLT; VACUOLATED NEUTROPHILES OCC
[2016-07-29 12:12] LABS: ALLENS TEST Pos; BE (BASE EXCESS) -0.6 MEQ/L (0 +/- 2.5); HCO3 (ACTUAL BICARBONATE) 23.6 MEQ/L (23-27); HEMOBLOGIN CONTENT 11.9 G/DL (12-16); INSTRUMENT SERIAL # 8083; METHEMOGLOBIN 0.2 % (0-3); O2 CONTENT 15.7 VOL% (18-24); OPERATOR ID 18801; PCO2 (CO2 TENSION) 37 MMHG (35-45); PO2 (O2 TENSION) 79 MMHG (79-93); SAMPLE Arterial; pH 7.42 (7.37-7.43)
[2016-07-30 03:37] LABS: HEMATOCRIT 32.9 % (36.0-48.0); HEMOGLOBIN 11.3 g/dL (12.0-16.0); MEAN CORPUS HGB CONC 34.3 g/dL (32.0-36.0); MEAN CORPUSCULAR HEMOGLOB 30.3 pg (26.0-34.0); MEAN CORPUSCULAR VOLUME 88.2 fL (80-100); MEAN PLATELET VOLUME 9.1 fL (9.2-13.0); PLATELET COUNT 194 10/3/uL (150-400); RBC DISTRIBUTION WIDTH 13.1 % (12.0-16.0); RED CELL COUNT 3.73 10/6/uL (4.0-5.6); WHITE BLOOD CELLS 14.4 10/3/uL (4.5-10.5)
[2016-07-30 03:38] LABS: MANUAL DIFF YES %
[2016-07-30 03:51] LABS: BUN (BLOOD UREA NITROGEN) 23 MG/DL (6-23); CALCIUM, SERUM 8.1 MG/DL (8.5-10.4); CHLORIDE, SERUM 103 MMOL/L (96-112); CREATININE 1.14 MG/DL (0.55-1.02); GFR AFRICAN AMERICAN 71 ML/MIN (>=60); GFR NON AFRICAN AMERICAN 61 ML/MIN (>=60); SODIUM, SERUM 143 MMOL/L (135-148)
[2016-07-30 03:52] LABS: CO2 (CARBON DIOXIDE) 29 MMOL/L (24-34); GLUCOSE, SERUM 268 MG/DL (60-99)
[2016-07-30 04:01] LABS: BAND NEUTROPHILS 4 %; IMMATURE GRANS ABSOLUTE (CALC) 0.43 10/3/uL (0.0-0.11); LYMPHOCYTES 8 %; LYMPHOCYTES ABSOLUTE (CALC) 1.15 10/3/uL (0.67-4.30); METAMYELOCYTES 3 %; MONOCYTES 5 %; MONOCYTES ABSOLUTE (CALC) 0.72 10/3/uL (0.21-1.20); PLATELET ESTIMATE ADQ (ADEQUATE); RBC MORPHOLOGY NORM (NORMAL); SEGMENTED NEUTROPHIL (0) 80 %; TOTAL NUCLEATED CELLS 100
[2016-07-31 03:54] LABS: HEMATOCRIT 33.9 % (36.0-48.0); HEMOGLOBIN 11.5 g/dL (12.0-16.0); MANUAL DIFF YES %; MEAN CORPUS HGB CONC 33.9 g/dL (32.0-36.0); MEAN CORPUSCULAR VOLUME 88.5 fL (80-100); MEAN PLATELET VOLUME 9.1 fL (9.2-13.0); PLATELET COUNT 185 10/3/uL (150-400); RBC DISTRIBUTION WIDTH 13.5 % (12.0-16.0); RED CELL COUNT 3.83 10/6/uL (4.0-5.6)
[2016-07-31 04:08] LABS: BUN (BLOOD UREA NITROGEN) 21 MG/DL (6-23); CALCIUM, SERUM 8.1 MG/DL (8.5-10.4); CHLORIDE, SERUM 104 MMOL/L (96-112); CO2 (CARBON DIOXIDE) 26 MMOL/L (24-34); CREATININE 1.25 MG/DL (0.55-1.02); GFR AFRICAN AMERICAN 63 ML/MIN (>=60); GFR NON AFRICAN AMERICAN 55 ML/MIN (>=60); POTASSIUM, SERUM 3.8 MMOL/L (3.5-5.3); SODIUM, SERUM 139 MMOL/L (135-148)
[2016-07-31 04:10] LABS: GLUCOSE, SERUM 333 MG/DL (60-99)
[2016-07-31 04:30] LABS: LYMPHOCYTES 12 %; LYMPHOCYTES ABSOLUTE (CALC) 1.68 10/3/uL (0.67-4.30); NEUTROPHILS ABSOLUTE (CALC) 12.32 10/3/uL (2.02-8.40); PLATELET ESTIMATE ADQ (ADEQUATE); RBC MORPHOLOGY NORM (NORMAL); SEGMENTED NEUTROPHIL (0) 88 %; TOTAL NUCLEATED CELLS 100
[2016-08-01 06:43] LABS: HEMATOCRIT 33.3 % (36.0-48.0); HEMOGLOBIN 11.2 g/dL (12.0-16.0); MANUAL DIFF YES %; MEAN CORPUS HGB CONC 33.6 g/dL (32.0-36.0); MEAN CORPUSCULAR HEMOGLOB 30.4 pg (26.0-34.0); MEAN CORPUSCULAR VOLUME 90.5 fL (80-100); MEAN PLATELET VOLUME 9.2 fL (9.2-13.0); PLATELET COUNT 174 10/3/uL (150-400); RBC DISTRIBUTION WIDTH 13.6 % (12.0-16.0); RED CELL COUNT 3.68 10/6/uL (4.0-5.6); WHITE BLOOD CELLS 12.7 10/3/uL (4.5-10.5)
[2016-08-01 06:55] LABS: BUN (BLOOD UREA NITROGEN) 18 MG/DL (6-23); CALCIUM, SERUM 7.9 MG/DL (8.5-10.4); CHLORIDE, SERUM 111 MMOL/L (96-112); CO2 (CARBON DIOXIDE) 26 MMOL/L (24-34); CREATININE 0.97 MG/DL (0.55-1.02); GFR AFRICAN AMERICAN 86 ML/MIN (>=60); GFR NON AFRICAN AMERICAN 74 ML/MIN (>=60); PHOSPHORUS, SERUM 3.5 MG/DL (2.5-4.5); POTASSIUM, SERUM 3.6 MMOL/L (3.5-5.3); SODIUM, SERUM 142 MMOL/L (135-148)
[2016-08-01 06:56] LABS: GLUCOSE, SERUM 163 MG/DL (60-99)
[2016-08-01 07:04] LABS: BAND NEUTROPHILS 2 %; LYMPHOCYTES 20 %; LYMPHOCYTES ABSOLUTE (CALC) 2.54 10/3/uL (0.67-4.30); MONOCYTES 3 %; MONOCYTES ABSOLUTE (CALC) 0.38 10/3/uL (0.21-1.20); NEUTROPHILS ABSOLUTE (CALC) 9.78 10/3/uL (2.02-8.40); PLATELET ESTIMATE ADQ (ADEQUATE); RBC MORPHOLOGY NORM (NORMAL); SEGMENTED NEUTROPHIL (0) 75 %; TOTAL NUCLEATED CELLS 100
[2016-08-02 04:50] LABS: ALLENS TEST Pos; BE (BASE EXCESS) 0.6 MEQ/L (0 +/- 2.5); CARBOXYHEMOGLOBIN 1.3 % (0-3); DEVICE NC; HCO3 (ACTUAL BICARBONATE) 24.9 MEQ/L (23-27); HEMOBLOGIN CONTENT 11.2 G/DL (12-16); INSTRUMENT SERIAL # 8083; METHEMOGLOBIN 0.3 % (0-3); O2 CONTENT 10.5 VOL% (18-24); OPERATOR ID 15231; PCO2 (CO2 TENSION) 38 MMHG (35-45); PO2 (O2 TENSION) 34 MMHG (79-93); SAMPLE Arterial; pH 7.43 (7.37-7.43)
[2016-08-02] MEDS ORDERED: MUCINEX600 MG PO (10:44)
[2016-08-02] MEDS ORDERED: SPIRIVA INH (10:51)
[2016-08-02] MEDS ORDERED: P10 PO ×2 (11:01→11:02)
[2016-08-02] MEDS ORDERED: P20 PO (11:02)
[2016-08-02] MEDS ORDERED: P5 PO (11:03)
[2016-08-02 18:52] LABS: IMMUNOGLOBULIN G SUBCLASS 1 282 mg/dL (405-1011); IMMUNOGLOBULIN G SUBCLASS 2 156 mg/dL (169-786); IMMUNOGLOBULIN G SUBCLASS 3 27 mg/dL (11-85); IMMUNOGLOBULIN G SUBCLASS 4 24 mg/dL (3-201)
== END 2016-08-02 15:52 | disposition home or self-care (01) | DRG 545 ==
LOC: ER 23:50 → 7NO 07-24 03:17 → IMCU 07-25 12:08 → 7NO 07-29 15:06
PROVIDERS: Emergency Medicine; Hospitalist; Physician Assistant Medical; Specialist
DX: M32.9 Systemic lupus erythematosus, unspecified (principal); J96.01 Acute respiratory failure with hypoxia; J44.0 Chronic obstructive pulmonary disease with (acute) lower respiratory infection; J44.1 Chronic obstructive pulmonary disease with (acute) exacerbation; J98.11 Atelectasis; J20.9 Acute bronchitis, unspecified; M32.13 Lung involvement in systemic lupus erythematosus; K76.0 Fatty (change of) liver, not elsewhere classified; J45.909 Unspecified asthma, uncomplicated; Z51.5 Encounter for palliative care; I25.2 Old myocardial infarction; G89.4 Chronic pain syndrome; G40.909 Epilepsy, unspecified, not intractable, without status epilepticus; E89.0 Postprocedural hypothyroidism; T38.0X5A Adverse effect of glucocorticoids and synthetic analogues, initial encounter; I73.00 Raynaud's syndrome without gangrene; E66.9 Obesity, unspecified; K21.9 Gastro-esophageal reflux disease without esophagitis; N20.0 Calculus of kidney; F25.9 Schizoaffective disorder, unspecified; G47.33 Obstructive sleep apnea (adult) (pediatric); E09.65 Drug or chemical induced diabetes mellitus with hyperglycemia; F41.9 Anxiety disorder, unspecified; F17.210 Nicotine dependence, cigarettes, uncomplicated; F31.9 Bipolar disorder, unspecified; Z90.49 Acquired absence of other specified parts of digestive tract; Z85.850 Personal history of malignant neoplasm of thyroid; Z79.52 Long term (current) use of systemic steroids; Z68.34 Body mass index [BMI] 34.0-34.9, adult; Z90.710 Acquired absence of both cervix and uterus; Z87.440 Personal history of urinary (tract) infections; Z91.041 Radiographic dye allergy status; Z88.5 Allergy status to narcotic agent; Z88.2 Allergy status to sulfonamides; Z88.8 Allergy status to other drugs, medicaments and biological substances; Z86.73 Personal history of transient ischemic attack (TIA), and cerebral infarction without residual deficits
CPT/HCPCS: 36600; 71010; 71250; 78582; 80048; 80053; 81001; 82103; 82247; 82248; 82330; 82784; 82785; 82787; 82787-59; 82805; 82962; 83036; 83605; 83735; 83880; 84100; 84145; 84439; 84443; 84484; 85025; 85610; 85652; 85730; 86039; 86140; 86146; 86146-59; 86160; 87040; 87449; 87641; 93005; 93970; 94640; 94668; 96374; 97116-GP; 97162-GP; 99285; A9270-GY; A9540; A9567; C8929; G8978-CK-GP; G8979-CI-GP; J0456; J2920; J2930; Q9957

== ENCOUNTER 2016-08-06 14:54 | Observation (INO) | payer OTHER ==
--- NOTE | ~2016-08-06 | CN ---
Consultation Report [facility] [address] [place]. [address] NAME: MÓNICA MAX : 76 STATUS : ADM Gina PAT#: [id number] AGE: 36 ADM/REG DATE : 08/06/16 MR#: [id number] REPORT SERV DATE: 08/07/16 DICTATED BY: ALEXANDER UP DATE: 08/07/16 REPORT STATUS : Draft TRANSCRIBED BY: MODL DATE: 08/07/16 CONSULTATION DATE OF CONSULTATION: Dear Dr. Piedra: Thank you for requesting my opinion regarding evaluation and management of Ms. Mónica Max' shortness of breath and hypoxemia. Ms. Max is a pleasant 36-year-old female with a significant past medical history of COPD, managed by Dr. Boateng, and lupus, who re- presents to [facility] after recent discharge on 08/02/2016 with recrudescent symptoms of worsening shortness of breath, nausea, and chest tightness. The patient was also found to have uncontrolled blood sugar levels. The patient had received antibiotic therapy and placed on a prednisone taper. Her symptoms were improved initially. At the time of discharge, she stated that she felt quite well, and as she reduced her steroid dose to 20 mg p.o. daily, she developed recrudescent symptoms of shortness of breath, well localized to the chest, nonradiating, with no significant alleviating or exacerbating factors. She also has developed a rash in the upper aspect of her chest and some chest tightness. She denies any fevers, chills, night sweats, current nausea, vomiting, or constipation. REVIEW OF SYSTEMS: A detailed 14-point review of systems was completed. Pertinent positives and negatives are listed above. PAST MEDICAL HISTORY: 1. Acute hypoxic respiratory failure, the patient is now home O2 dependent on 2 L nasal cannula. 2. COPD. 3. 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 4. Steroid-induced hyperglycemia and type 2 diabetes. 5. Lupus. 6. Raynaud's. 7. Hypertension. 8. Questionable history of prior myocardial infarction. 9. Status post papillary thyroid cancer removal. 10.Hypoparathyroidism. 11.Hypocalcemia. 12.Bipolar and schizoaffective disorder. 13.Chronic pain syndrome. 14.Obstructive sleep apnea, intolerant of CPAP. 15.Morbid obesity. 16.Unclear history of seizure disorder. The patient had reported previously that she was on Topamax to control seizures. Consultation Report [place] [id number] [facility] [place]. [address] NAME: MÓNICA MAX : 76 STATUS : ADM Gina PAT#: [id number] AGE: 36 ADM/REG DATE : 08/06/16 MR#: [id number] REPORT SERV DATE: 08/07/16 DICTATED BY: ALEXANDER UP DATE: 08/07/16 REPORT STATUS : Draft TRANSCRIBED BY: SHRUTI DATE: 08/07/16 SOCIAL HISTORY: The patient stopped smoking approximately two weeks ago, but she has smoked for 10 to 11 years at least a pack per day. She denies any significant history of alcohol or illicit drug abuse. She is and has two children who are currently not living with. Her mother is the primary caregiver at this time. FAMILY HISTORY: No history of lupus. ALLERGIES: NOVOCAIN, VICODIN, REGLAN, IODINATED CONTRAST MEDIA, CODEINE, BACTRIM, AND SULFA. HOME MEDICATIONS: Reviewed and located in the paper chart. PHYSICAL EXAMINATION: VITAL SIGNS: Afebrile, T current 97.9, pulse of 80, respiratory rate of 19, 2 L of nasal cannula at 100% FiO2, blood pressure 94/66. GENERAL: In no acute distress. Able to communicate in full paragraphs at a time. HEENT: Normocephalic, atraumatic. Pupils are equal, round, and reactive to light and accommodation. Posterior oropharynx is clear. NECK: No JVD. No LAD. Trachea midline. CARDIOVASCULAR: Regular rate and rhythm. S1 and S2 present. ABDOMEN: Nontender, nondistended, soft. Positive bowel sounds. EXTREMITIES: No clubbing, cyanosis, or edema. SKIN: Back rash noted, otherwise, no other lesions. NEUROLOGIC: 5/5 strength in upper and lower extremities. Cranial nerves 2 through 12 intact. Gait not tested. DTRs not performed. LABORATORY DATA: White count of 13, platelet count of 233, hematocrit of 40. Chemistry demonstrated a creatinine of 1.23, negative troponin. IMAGING: Chest x-ray on 08/07/2016 demonstrates normal single-view chest. Left lung base infiltrate and/or atelectasis of 07/29/2014 has resolved. This chest x-ray has been personally reviewed by me. I agree with the above interpretation. ASSESSMENT AND PLAN: Ms. Mónica Max is an extremely pleasant 36-year-old female with complex past medical history including chronic obstructive pulmonary disease, 11+ packs a year smoking history, quit two weeks ago, lupus with lung involvement, schizoaffective disorder, low level of IgG, and prior history of thyroid cancer, who presents to [facility] with recrudescent symptoms of worsening shortness of breath as she had lowered her prednisone dose to 20 mg. The patient states that she has [id number] symptoms associated with chest tightness. At this point, the clinical radiographic presentation is most consistent with multifactorial shortness of breath due to the followin. Acute on chronic obstructive pulmonary disease. 2. Possible lupus lung, although the patient's chest x-ray is clear. Consultation Report [facility] [address] [facility] [place]. [address] NAME: MÓNICA MAX : 76 STATUS : ADM Gina PAT#: [id number] AGE: 36 ADM/REG DATE : 08/06/16 MR#: [id number] REPORT SERV DATE: 08/07/16 DICTATED BY: ALEXANDER UP DATE: 08/07/16 REPORT STATUS : Draft TRANSCRIBED BY: SHRUTI DATE: 08/07/16 3. The patient is at risk for venous thromboembolic disease. To better elucidate the underlying causes of her shortness of breath and optimize her pulmonary status, I recommend the followin. Pulmicort, Brovana, and DuoNeb scheduled and p.r.n. 2. Discontinue Spiriva. 3. CT scan of the chest noncontrast to re-evaluate the ground-glass infiltrates noted on the prior CT scan of the chest. 4. Prior CT scan of the chest on 07/26/2016. 5. Smoking cessation counseling provided. The patient will continue to not to smoke. She states that she quit two weeks ago. 6. V/Q scan to rule out venous thromboembolic disease given her chest tightness and comorbidities. 7. ICS and flutter valve. 8. Further recommendations pending scans. Thank you for allowing me to participate in Ms. Max' care. MARINE/SHRUTI Alexander Up M.D. / [id number] CC: Tameka Franklin M.D.
--- NOTE | ~2016-08-06 | HP ---
History And Physical [id number] [place]. [address] NAME: GONZÁLEZ MAX : 76 STATUS : ADM Gina PAT#: [id number] AGE: 36 ADM/REG DATE : 08/06/16 MR#: [id number] REPORT SERV DATE: 08/06/16 DICTATED BY: YENY LYLE DATE: 08/06/16 REPORT STATUS : Draft TRANSCRIBED BY: MODL DATE: 08/06/16 DATE OF ADMISSION: 08/06/2016 HISTORY OF PRESENT ILLNESS: Ms. Max is a 36-year-old female patient who was recently discharged from the hospital on 08/02/2016, comes back today with increasing shortness of breath, some nausea, and left-sided chest tightness again, and also uncontrolled blood sugar levels. The patient was recently discharged from the hospital on 08/02/2016 and has multiple issues, main ones involving the lungs basically. The patient does have acute on chronic hypoxic respiratory failure and is on home oxygen currently at 2 L/minute from COPD and also lupus involving the lungs. The patient was sent home on tapering steroids and was asked to follow up with primary care physician to check to see if she could get medications for diabetes as an outpatient if her blood glucose levels continued to climb. However, the patient's family states that they could not get an appointment with the PCP for a few more days and because her blood glucose levels were increasing, they went to [facility] and got a prescription for Lantus insulin. However, even the Lantus insulin is not keeping the blood sugar levels down. Hence, the family was concerned not only because of the rising blood glucose levels but also because of the patient's increasing dyspnea again and they decided to bring her back. Mother is with the patient and she is the primary caregiver for the patient. The patient's chief complaint now is that she has a rash on the upper aspect of the chest, some tightness on the left side of the chest, and also continues to have difficulty breathing. She is slightly more short-winded than her usual normal self. She does have baseline shortness of breath and has difficulty getting around because of shortness of breath and uses a walker with wheels to get around. Please see my previous discharge summary for all the chronic issues that she has. At this time, she denies any definitive chest pain, significant cough, fever, headaches, vomiting, abdominal pain, etc. She denies any hematuria, blood in stool, dysuria, etc. She states the rash on her upper chest is definitely itchy at this time. PAST MEDICAL HISTORY: On this patient is significant for several problems that include: 1. Acute hypoxemic respiratory failure, now it has probably become chronic as the patient is home oxygen-dependent at 2 L/minute per nasal cannula. 2. COPD. 3. 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 4. Low IgG level. 5. Steroid-induced hyperglycemia and now probably diabetes mellitus 2. 6. Diagnosis of lupus, history of Raynaud phenomenon from lupus. The patient's legal administrative assistant is Dr. Laura. 7. Hypertension. 8. History of questionable myocardial infarction. 9. Status post papillary thyroid cancer removal. 10.History of hypoparathyroidism and hypocalcemia. 11.Bipolar/schizoaffective disorder. History And Physical [address] [address] NAME: GONZÁLEZ MAX : 76 STATUS : ADM Gina PAT#: [id number] AGE: 36 ADM/REG DATE : 08/06/16 MR#: [id number] REPORT SERV DATE: 08/06/16 DICTATED BY: YENY LYLE DATE: 08/06/16 REPORT STATUS : Draft TRANSCRIBED BY: SHRUTI DATE: 08/06/16 12.Chronic pain syndrome. 13.The patient is not on any active seizure medications, but she states Topamax itself controls the seizure disorder. 14.Obstructive sleep apnea, the patient intolerant of CPAP. 15.Morbid obesity. SOCIAL HISTORY: The patient has stopped smoking currently, but she used to be a smoker up until a few weeks ago. The patient does not drink any alcohol or do any drugs. The patient is currently not , but she had been in the past and has 2 children who are currently not living with her. Mother is her primary caregiver at this time. FAMILY HISTORY: There is no family history of lupus in mother. ALLERGIES AND MEDICATIONS: The patient's allergies include allergic to Novocain, Vicodin, Reglan, iodinated contrast media, codeine, Bactrim, and sulfa. The patient's home medications that she uses on a regular basis run a long list. The patient essentially takes multivitamins and supplements but in addition to that the following prescribed medications: Aspirin 81 mg once a day, cholecalciferol 1000 units once a day, melatonin 10 mg at bedtime, baclofen 20 mg p.o. b.i.d., Zocor 10 mg p.o. daily, Topamax 200 mg p.o. b.i.d. for "seizures," Prozac 20 mg once every day, Atarax 25 mg p.o. b.i.d., Elavil 150 mg p.o. at bedtime, Synthroid 200 mcg once a day, albuterol nebulized, MS Contin 15 mg p.o. b.i.d., Roxicodone 5 mg p.o. t.i.d. p.r.n., Ventolin HFA p.r.n. for shortness of breath, Seroquel 100 mg at bedtime, Singulair 10 mg every evening, Zofran 4 mg p.o. t.i.d., Plavix 75 mg once a day, Prilosec 40 mg p.o. b.i.d., Aldactone 50 mg p.o. once a day, Neurontin 100 mg p.o. at bedtime, Prinivil 10 mg p.o. once a day, Lopressor 50 mg p.o. b.i.d., Mucinex 600 mg p.o. b.i.d., and Spiriva HandiHaler once a day. Prednisone: Currently the patient is on 20 mg of prednisone, which she is supposed to take for two days, 10 mg for two days after that, 5 mg for two days after that, and stop eventually. The patient was also given a prescription for Breo Ellipta at this time during this admission. The patient has been on glargine insulin that she has received from the [facility], and she is supposed to be taking only 5 units at bedtime, which the patient's mother thinks that is simply not enough to get her sugars down. PHYSICAL EXAMINATION: GENERAL: The patient is a heavyset female who appears to be quite comfortable at rest and is able to completely complete a sentence and give her history herself. She is not short of breath at rest. The patient is on 2 L of oxygen right now and saturating fine. Skin and mucous membranes appear well hydrated. VITAL SIGNS: Show oxygen saturation of 95% on 2 L of oxygen, blood pressure is 88/45, temperature is 98.7, afebrile, pulse is 110 per minute, respirations 19 per minute. HEENT: Unremarkable. SKIN: There is a rash noted on the upper aspect of the chest only and some parts of the neck, which really appear like little blisters that could be early scabies. The patient does state that the rash itches. The rash is not there in any other place and it is definitely not a generalized rash. The rash is basically maculopapular and involving the History And Physical [address] [address] NAME: GONZÁLEZ MAX : 76 STATUS : ADM Gina PAT#: [id number] AGE: 36 ADM/REG DATE : 08/06/16 MR#: [id number] REPORT SERV DATE: 08/06/16 DICTATED BY: YENY LYLE DATE: 08/06/16 REPORT STATUS : Draft TRANSCRIBED BY: MODEliza DATE: 08/06/16 upper part of the chest. NECK: There is no JVD. CARDIOVASCULAR SYSTEM: S1 and S2 appreciated. Sinus rhythm. No murmurs, rubs, or gallops noted. RESPIRATORY SYSTEM: Clear lungs noted. No rales or rhonchi noted at this time. ABDOMEN: Soft, obese nontender, nondistended. There are several significant bruises/hematomas on the abdomen, which the patient attributes to recent hospitalization and subcutaneous heparin that she received while here, but the hematomas do not appear infected and are not tender. EXTREMITIES: There is no pedal edema. Pedal pulses are well felt. NEUROLOGIC: Normal. PSYCHIATRIC: At this time, the patient seems to be a little anxious but otherwise normal affect. MUSCULOSKELETAL: Normal at this time but the patient is dependent on multiple narcotics, which are chronic medications for chronic use. LABORATORY DATA: Labs that I have from today include the following: The patient's CBC shows a WBC count of 13.7 and most likely the leukocytosis is secondary to prednisone, as she definitely does not appear infected or toxic at this time. Her hemoglobin is 13.2, hematocrit is 40.5, and platelet count is 233. INR is 1. Electrolytes are normal. BUN is 17, creatinine is 1.2. Troponin I is less than 0.02, which is normal. EKG is completely normal. Her ABGs show a pH of 7.3, PCO2 of 45, PO2 of 118, O2 saturations 98% on 2 L of oxygen. BNP is 10.5 only. ASSESSMENT: My assessment in this patient is: 1. Rash on the upper aspect of the chest. 2. Increasing dyspnea and shortness of breath with minimal exertion at this time despite being on oxygen at 2 L. 3. 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 4. All the other chronic problems are as above. Please read my above note. PLAN: 1. My plan is to put patient on Elimite cream. 2. For the increasing shortness of breath, we will titrate oxygen as necessary to keep her saturations above 92%. We will check a portable chest x-ray. We will also check an echocardiogram as the patient states that she has had a previous OH, even though I doubt there is anything abnormal that is going to be seen on echocardiogram as her BNP is normal and also her troponin I is normal. 3. We will also go ahead and put her on Levemir insulin 15 units in the morning and 10 units at night subcutaneously and keep her on SSI level 1 along with Accu-Cheks before meals and at bedtime. We will keep her on 1800 kilocalorie ADA diet and we will also give her diabetic education. We will put the patient in for a 23-hour observation at this time and if need be, we can change it to a full inpatient admit. This patient History And Physical [address] [address] NAME: GONZÁLEZ MAX DONNY : 76 STATUS : ADM Gina PAT#: [id number] AGE: 36 ADM/REG DATE : 08/06/16 MR#: [id number] REPORT SERV DATE: 08/06/16 DICTATED BY: YENY LYLE DATE: 08/06/16 REPORT STATUS : Draft TRANSCRIBED BY: SHRUTI DATE: 08/06/16 will be followed by my colleague on 08/07/2016. VERONICA/SHRUTI Yeny Lyle M.D. / [id number] CC: Yeny Lyle M.D.
--- NOTE | ~2016-08-06 | DS ---
Discharge Summary [facility] [address] [place]. [address] NAME: GONZÁLEZ MAX : 76 STATUS : ADM Gina PAT#: [id number] AGE: 36 ADM/REG DATE : 08/06/16 MR#: [id number] REPORT SERV DATE: 08/08/16 DICTATED BY: JAMES MORAN DATE: 08/08/16 REPORT STATUS : Draft TRANSCRIBED BY: MODL DATE: 08/08/16 ADMISSION DATE: 08/06/2016 DISCHARGE DATE: 08/08/2016 DIAGNOSES ON ADMISSION: 1. Rash on the upper aspect of the chest. 2. Increasing dyspnea and shortness of breath with minimal exertion, on chronic oxygen 2 L by nasal cannula. 3. Steroid-induced diabetes with uncontrolled blood sugar. DIAGNOSES ON DISCHARGE: 1. Rash on upper chest, improved. 2. Dyspnea present on admission, resolved. No evidence of pneumonia. No evidence of interstitial lung disease on the CT of the chest. 3. Steroid-induced diabetes, currently controlled. 4. History of obstructive sleep apnea, noncompliant with CPAP. 5. History of schizoaffective disorder. Mood currently controlled. 6. Chronic pain syndrome. 7. History of seizures in the past. No active seizures currently. 8. Morbid obesity. 9. Hypertension. 10.Multiple other chronic medical problems. 11.Chronic obstructive pulmonary disease, controlled. No evidence of exacerbation. CONSULTANTS ON THE CASE: [employer] Machine Operator, Dr. Good. IMAGING STUDIES DONE: V/Q scan, low probability for pulmonary embolism. CT of the chest without contrast done on 08/08 showed clear lungs. Bilateral ground-glass opacities present on the previous CT chest, resolved. No pneumonia. Echocardiogram was repeated on 08/07 and showed normal left ventricular ejection fraction of 55%. Left ventricle diastolic function intact. No other pathology. HISTORY OF PRESENT ILLNESS: Briefly, Mrs. Max is a 36-year-old female, who was recently discharged from the hospital on 08/02 by my colleague with improvement. She presented back on 08/06. She was admitted by Dr. Piedra for increasing shortness of breath and uncontrolled blood sugars secondary to steroid-induced diabetes. For the details, see history of present illness dictated by Dr. Piedra. HOSPITAL COURSE: Briefly, the patient was seen in the hospital by me starting 08/07. She improved significantly. She does not have shortness of breath. Her oxygenation improved. Her oxygen saturations were 99% on 2 L of nasal cannula. She was evaluated by Dr. Good, and her CT scan does not show any evidence of pneumonia, also V/Q scan was low probability for pulmonary embolism. The patient doing well and her blood sugar also has been controlled on long-acting Levemir and also on NovoLog sliding scale. The patient had education by the nurse regarding NovoLog sliding scale and prescription was given for NovoLog level 1 sliding Discharge Summary [place] [place]. [address] NAME: GONZÁLEZ MAX : 76 STATUS : ADM Gina PAT#: [id number] AGE: 36 ADM/REG DATE : 08/06/16 MR#: [id number] REPORT SERV DATE: 08/08/16 DICTATED BY: JAMES MORAN DATE: 08/08/16 REPORT STATUS : Draft TRANSCRIBED BY: SHRUTI DATE: 08/08/16 scale for 2 weeks as well as Lantus 10 units at bedtime also was given to the patient. The patient has steroid-induced diabetes. Also, she has polypharmacy and she is on Seroquel, which could also increase her blood sugar. Her hemoglobin A1c on 07/25 was 6.9. The patient needs to follow up with primary care physician, Karen Walker for further blood sugar control. It was explained to patient's mother and to the patient that once the steroid dose is going to be decreased, her insulin requirement is also going to be decreased, so they have to do Accu-Cheks, they have to be familiar with the sliding scale. Also, they were explained about hypoglycemia, dangers of hypoglycemia, and the nurse explained to them how they should manage that. Regarding her COPD exacerbation, it has resolved, and Dr. Good recommended patient to be discharged. He recommended tapering course of prednisone and cephalexin for five days. He also recommended to follow up with Dr. Boateng in one to two weeks, new joint maker machine. DISCHARGE MEDICATIONS: Discharge medications are amitriptyline 150 mg at bedtime, aspirin 81 mg daily, baclofen 20 mg b.i.d., Plavix 75 mg daily, calcium with vitamin D 600 p.o. b.i.d., vitamin D3 1000 units daily, Prozac 20 mg daily, Neurontin 100 mg at bedtime, NovoLog level 1 sliding scale prescription given to the patient, Lantus 10 units at bedtime, levothyroxine 200 mcg a day, lisinopril 10 mg a day, melatonin 10 mg a day, Singulair 10 mg a day, MS Contin 15 mg q.12 hours for pain management, metoprolol 50 mg p.o. b.i.d., omeprazole 40 mg b.i.d., Seroquel 100 mg at bedtime, simvastatin 10 mg daily, spironolactone 50 mg daily, Topamax 200 mg b.i.d., hydroxyzine 25 p.o. b.i.d., prednisone 10 mg p.o. daily for five days and then 5 mg p.o. daily for five days and then to stop, Lantus 10 units at bedtime. Prescriptions given by Dr. Good on cephalexin and on prednisone. Albuterol metered dose inhaler as needed. The patient also takes several herbal supplements, [place] over the counter, Nattokinase 100 mg a day, Quercetin 1200 p.o. daily. She also takes medicine for her leg cramps a day, fish oil daily. She takes oxycodone 5 mg three times daily as needed and it was recommended to decrease it. Mother said that she may not tolerate the decreasing pain medications. It was explained that they can cause unresponsiveness and other problems. They are going to stick with pain management. Zofran 4 mg three times a day, Mucinex 600 p.o. q.12 hours, Spiriva one capsule by inhalation q.24 hours, Breo Ellipta one puff inhaled daily. Spiriva and Breo Ellipta was also recommended to continue by Dr. Good. The patient was discharged in stable condition. I spent 45 minutes on discharge. DICTATED BY: Tameka Franklin/SHRUTI James Moran M.D. / [id number] CC: James Moran M.D. Discharge Summary [facility] [address] [place]. [address] NAME: GONZÁLEZ MAX : 76 STATUS : ADM Gina PAT#: [id number] AGE: 36 ADM/REG DATE : 08/06/16 MR#: [id number] REPORT SERV DATE: 08/08/16 DICTATED BY: JAMES MORAN DATE: 08/08/16 REPORT STATUS : Draft TRANSCRIBED BY: MODL DATE: 08/08/16 Tameka Wren M.D.
[~2016-08-06 14:54] MED LIST changes: +ALBUTEROL0.083 % INH; +AMIT75 PO; +AT25 PO; +BACLOFEN20 MG PO; +CRAMPS OTC PO; +EVENING PRIMROSE PO; +FIORICET 50-301 EACH PO; +FISH OIL OTC PO; +LEVAQUIN750 MG PO; +MELATONIN10 M2 PO; +MILK THISTLE 175 MG PO; +MUCINEX600 MG PO; +P10 PO; +P20 PO; +P5 PO; +PROBIOTIC OTC PO; +SINGULAIR1 PO; +SPIRIVA INH; +SYNTHROID200 MCG PO; +VENTOLIN HFA INH; +[UNRECOGNIZED DRUG - OTHER] PO; +[UNRECOGNIZED DRUG - OTHER] PO
[2016-08-06 15:28] LABS: BASOPHILS 0.1 %; BASOPHILS ABSOLUTE 0.01 10/3/uL (0.0-0.16); EOSINOPHILS 0.9 %; EOSINOPHILS ABSOLUTE 0.13 10/3/uL (0.0-0.53); ER CBC TAT 0 Hrs 00 Mins; HEMOGLOBIN 13.2 g/dL (12.0-16.0); IMMATURE GRANULOCYTES 0.8 %; IMMATURE GRANULOCYTES ABSOLUTE 0.11 10/3/uL (0.0-0.11); LYMPHOCYTES 23.6 %; LYMPHOCYTES ABSOLUTE 3.24 10/3/uL (0.67-4.30); MEAN CORPUS HGB CONC 32.6 g/dL (32.0-36.0); MEAN CORPUSCULAR HEMOGLOB 30.2 pg (26.0-34.0); MEAN CORPUSCULAR VOLUME 92.7 fL (80-100); MEAN PLATELET VOLUME 9.9 fL (9.2-13.0); MONOCYTES 5.8 %; NEUTROPHILS 68.8 %; NEUTROPHILS ABSOLUTE 9.44 10/3/uL (2.02-8.40); RED CELL COUNT 4.37 10/6/uL (4.0-5.6); WHITE BLOOD CELLS 13.7 10/3/uL (4.5-10.5)
[2016-08-06 15:33] LABS: HEMATOCRIT 40.5 % (36.0-48.0); MANUAL DIFF NO %; PLATELET COUNT 233 10/3/uL (150-400)
[2016-08-06 15:38] LABS: PARTIAL THROMBO TIME 23.8 SEC (22.5-37.2); PROTIME (NOT ORD) 12.9 SEC (12.0-14.5)
[2016-08-06 15:44] LABS: BUN (BLOOD UREA NITROGEN) 17 MG/DL (6-23); CALCIUM, SERUM 8.6 MG/DL (8.5-10.4); CHEST PAIN PROFILE TAT 0 Hrs 00 Mins; CREATININE 1.23 MG/DL (0.55-1.02); GFR AFRICAN AMERICAN 64 ML/MIN (>=60); GFR NON AFRICAN AMERICAN 56 ML/MIN (>=60); GLUCOSE, SERUM 190 MG/DL (60-99); TROPONIN I <0.02 NG/ML (<0.05)
[2016-08-06 15:49] LABS: CHLORIDE, SERUM 99 MMOL/L (96-112); CO2 (CARBON DIOXIDE) 31 MMOL/L (24-34); SODIUM, SERUM 135 MMOL/L (135-148)
[2016-08-06] MEDS ORDERED: K500 PO (17:31)
[2016-08-06] MEDS ORDERED: LANTUS SC (17:31)
[2016-08-06] MEDS ORDERED: BREO ELLIPTA 21 EACH INH (17:31)
[2016-08-07 12:05] LABS: BUN (BLOOD UREA NITROGEN) 16 MG/DL (6-23); CALCIUM, SERUM 8.5 MG/DL (8.5-10.4); CHLORIDE, SERUM 101 MMOL/L (96-112); CO2 (CARBON DIOXIDE) 34 MMOL/L (24-34); CREATININE 0.98 MG/DL (0.55-1.02); GFR AFRICAN AMERICAN 85 ML/MIN (>=60); GFR NON AFRICAN AMERICAN 73 ML/MIN (>=60); GLUCOSE, SERUM 169 MG/DL (60-99); POTASSIUM, SERUM 3.8 MMOL/L (3.5-5.3); SODIUM, SERUM 138 MMOL/L (135-148)
[2016-08-08] MEDS ORDERED: NOVOLOG SC (17:04)
[2016-08-08] MEDS ORDERED: K500 PO (17:14)
[2016-08-08] MEDS ORDERED: P10 PO (17:16)
[2016-08-08] MEDS ORDERED: LANTUS SC (17:18)
== END 2016-08-08 18:54 | disposition home or self-care (01) ==
LOC: ER 14:54 → CDU1 18:20
PROVIDERS: Emergency Medicine; Hospitalist
DX: R21 Rash and other nonspecific skin eruption (principal); J44.9 Chronic obstructive pulmonary disease, unspecified; M32.9 Systemic lupus erythematosus, unspecified; E11.9 Type 2 diabetes mellitus without complications; I10 Essential (primary) hypertension; F31.9 Bipolar disorder, unspecified; F25.9 Schizoaffective disorder, unspecified; G47.33 Obstructive sleep apnea (adult) (pediatric); E66.01 Morbid (severe) obesity due to excess calories; Z99.81 Dependence on supplemental oxygen; Z87.891 Personal history of nicotine dependence; Z88.2 Allergy status to sulfonamides; Z88.5 Allergy status to narcotic agent; Z88.8 Allergy status to other drugs, medicaments and biological substances; Z79.82 Long term (current) use of aspirin; Z79.899 Other long term (current) drug therapy; Z79.02 Long term (current) use of antithrombotics/antiplatelets; Z79.4 Long term (current) use of insulin; I73.00 Raynaud's syndrome without gangrene; E20.9 Hypoparathyroidism, unspecified
CPT/HCPCS: 36600; 71010; 71250; 78582; 80048; 82330; 82803; 82947; 82962; 83735; 83880; 84132; 84295; 84484; 85014; 85025; 85610; 85730; 93005; 94640; 97161-GP; 99285; A9270-GY; A9540; A9567; C8929; G0378; Q9957